=== PATIENT | male | born 1960 | race Caucasian/White ===

== ENCOUNTER 2018-10-07 07:28 | Inpatient (IN) | payer OTHER ==
[2018-10-07 07:58] LABS: INR 0.99 (0.83-1.16); PROTIME(PATIENT) 12.7 SEC (12.0-15.0)
[2018-10-07] MEDS ORDERED: ONDANSETRON 4 MG/2 ML VIAL IVP PRN (08:50)
[2018-10-07] MEDS ORDERED: ONDANSETRON DISINTEGRATING 4 MG TAB PO PRN (08:50)
[2018-10-07] MEDS ORDERED: NS 250 ML IV ONE (08:50)
[2018-10-07] MEDS ORDERED: ACETAMINOPHEN 325 MG TAB PO PRN (08:50)
--- NOTE | 2018-10-07 09:25 | EDPHY ---
ED Progress Note Narrative: Procedure: Laceration repair. I was requested by Dr. Rowan Madera to perform wound closure on the patient's occipital laceration I explained the indications, risks and benefits for both laceration repair and anesthetic administration. Verbal consent was obtained from the patient. The 5 cm laceration on the occiput was anesthetized using 0.5% bupivicaine with epinephrine. After anesthetic administered the patient was observed for a period of time and had no apparent adverse effects. The wound was cleaned, prepped, draped in normal sterile fashion and explored to its base. No foreign body seen, no foreign bodies palpated. There were no deep structures involved. The wound was repaired with 9 salo. The wound repair was complex due to the length of laceration. The procedure was performed by myself. Patient has been informed that scarring will occur, although efforts have been made to minimize this.
[2018-10-07] MEDS ORDERED: D50W 25 GM/50 ML SYR IVP PRN (09:31)
[2018-10-07 10:26] LABS: PLATELET COUNT 252 10^3/uL (150-400)
--- NOTE | 2018-10-07 10:49 | GHP ---
[f rep st] HISTORY AND PHYSICAL DATE OF ADMISSION: 10/07/2018 CHIEF COMPLAINT: Confused. 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 Apparently, he presented to work around 6:00 AM this morning. A co-worker saw him shortly thereafter. About 30 minutes later, the co-worker returned to find him lying on the ground with blood pooling around his head. He was somewhat confused at the time. Mr. Velasco does not remember what happened. He has never had a seizure before. His alcohol intake is slightly unclear. He is telling me he has a few beers a day, however, reportedly, [id number] believes this may be more. He tells me, yesterday, he had a beer and a cocktail. He did not believe that he was dehydrated. He does drink significant amounts of free water, including sugar-free Gatorades. He does not use any other drugs, including cocaine and amphetamines, although he does use some marijuana. There is report of a tongue bite from the ED. He was initially very confused with a "glazed" state. He has slowly improved and is now alert and oriented x3. PAST MEDICAL/SURGICAL HISTORY: 1. Diabetes mellitus, on oral medications. 2. Hypertension. 3. Asthma. 4. Detached retina. 5. A history of cataract surgery. MEDICATIONS: Please see medication reconciliation. ALLERGIES: No known drug allergies. FAMILY HISTORY: Reviewed and noncontributory. SOCIAL HISTORY: Alcohol, as above. He is accompanied by his and brother- in-law, who is a physician. REVIEW OF SYSTEMS: A 10-point review of systems is notable for recent respiratory disorder. Otherwise, negative, except per HPI. PHYSICAL EXAM: GENERAL: Patient appears comfortable. VITAL SIGNS: Have not been entered into [facility] yet. HEENT: He has a laceration on his head with some blood around it. He has a bite on the anterior aspect of his tongue as well as on the right lateral aspect. CARDIOVASCULAR: Exam shows a regular rate and rhythm. No murmurs, rubs or gallops. PULMONARY: Shows lungs clear to auscultation bilaterally. ABDOMEN: Soft, nontender, nondistended. SKIN: Shows no rash. : Shows no Iniguez. He does have some urine around on his underwear. NEUROLOGIC: Shows him to be alert and oriented x3. He is moving all extremities. PSYCHIATRIC: Shows a normal mood and affect. LABS: Sodium is 120, chloride 85, bicarbonate 11, glucose 285. LFTs are normal. Initial CBC was rejected, though, his hemoglobin is 13.3. DATA: 1. Discussed with Dr. Madera. Will admit to the step-down unit. 2. I reviewed his head CT. This shows nothing acute. 3. Initial report from cervical spine CT is negative. 4. ECG shows a prolonged KS interval. IMPRESSION AND PLAN: 1. Seizure, suspected: Consistent with his postictal period. His anion gap, acidosis, tongue laceration, loss of bladder control; I am not clear exactly what the etiology is. This certainly may be alcohol withdrawal. Head CT was negative for anything acute. His corrected sodium comes to 124, thus, I do not think that is really the etiology, though, it may have made him more susceptible to a seizure. I have sent a urine tox screen. I will start him empirically on Keppra for now. Will ask Neurology to see him in consultation. 2. Hyponatremia: When sodium is corrected for his hyperglycemia, it comes to 124. Urine electrolytes are pending. Given his tachycardia, I suspect that he is slightly dry. He is getting a small amount of normal saline, 250 cc, will recheck. My goal for his sodium tomorrow morning would be around 130. 3. Diabetes with hyperglycemia: Will place him on sliding scale insulin. Will hold metformin for now. 4. Anion gap acidosis: Suspect lactate in the setting of seizure. I note that he is on metformin as well. Will recheck soon. 5. Detached retina: I believe this is the finding on his CT head. Does not need any further workup, at this time, as it is chronic. 6. Prolonged P-R interval: I do not believe that he had syncope from this, at this point, although we will continue to monitor him on telemetry. 7. Venous thromboembolism risk is moderate to high. I will place him on Lovenox. /[id number]/MODL MTDD
[2018-10-07] MEDS: levETIRAcetam 750 MG in NS 100 ML IV SCH ×2 (11:00→21:39)
[2018-10-07] MEDS ORDERED: ALBUTEROL 60 PUFFS/8 GM MDI IH PRN (11:31)
[2018-10-07] MEDS: INSULIN LISPRO 100 UNIT/ML SC SCH ×2 (12:36→17:48)
[2018-10-07] MEDS: ENOXAPARIN 40 MG/0.4 ML SYR SC SCH (12:37)
--- NOTE | 2018-10-07 12:45 | GCON ---
[f rep st] CONSULTATION DATE OF CONSULTATION: 10/07/2018 REASON FOR CONSULTATION: Hyponatremia, possible seizure, mental status changes. HISTORY OF PRESENT ILLNESS: This is a 58-year-old male with a past medical history significant for d iabetes, hypertension, and reactive airway disease, who now presents with a possible seizure and a so dium level of 118. History is obtained from the patient. He is alert and oriented, but a fair histo héctor. Additional history is obtained from the medical staff, as well as the [facility] records. The patient was in his baseline state of health when he arrived at work earlier today and felt slight ly dizzy. 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 A co-worker found him lying on the g round with blood pooling around his head. He was arousable and slightly confused. He does not have memory of the events. He did have a head laceration and tongue lacerations. He did not have any his tory of syncope or seizures prior to this time. His admission blood pressure was quite high at 205/9 9. His admission labs were remarkable for an anion gap acidosis, that then corrected. His creatinin e level was normal. His current sodium level is 118, with a glucose level of 295. Presently, the venecia quiñones's mental status appears appropriate. He does appear somewhat anxious. In reviewing the patient's medical records from [facility], he did have laboratory studies performed in [place] 2017, which demonstrated a sodium level of 132. He is on a thiazide diuretic. Additional labor atory studies were ordered from June of this year, but it does not appear they were completed. The patient does admit to drinking large amounts of fluids. He states his eating has been good and w ithout change. He denies recent medication changes. He is unaware of his most recent hemoglobin A1c , and does not believe he has hypoglycemic episodes. He has had recent worsening of reactive airway disease, which he associates with a recent viral respiratory infection. Because of this, he has been using an inhaler. The patient has already had some laboratory studies return from his current evaluation. This include a normal TSH. A cortisol level is 56. His chest x-ray is normal. He has had some hyperglycemia, w ith glucose levels in the upper 200s. As related to the above findings, we were asked by Dr. Burr to assist in the patient's renal diagnosis and management. PAST MEDICAL HISTORY: 1. Diabetes mellitus x10 years. 2. Hypertension. 3. Reactive airway disease. 4. Detached retina. 5. History of cataract surgery. 6. History of foot. 7. Peripheral neuropathy. SURGICAL HISTORY: Cataract surgery. FAMILY HISTORY: Positive for lung cancer. SOCIAL HISTORY: The patient was raised in the [facility]. He is . He has 1 son whom he has no t seen in some time. 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 He does not smoke cigarettes. He drinks 4 alc oholic drinks per day. REVIEW OF SYSTEMS: GENERAL: The patient denies recent weight changes. He does admit to drinking la rge amounts of fluid. He states his appetite has been stable. He is denying a headache. He denies visual disturbances. He has had a runny nose and dry cough. He denies sore throat. LUNGS: He has had some shortness of breath which he associates with reactive airway disease. CHEST: He denies daniela st pain or palpitations. ABDOMEN: He denies abdominal pain, constipation, or diarrhea. GENITOURINA RY: He denies dysuria. He does urinate 3 to 4 times a night. EXTREMITIES: He has lower extremity e janet. He has a history of neuropathy per the chart. SKIN: He denies skin rashes or skin lesions. ENDOCRINE: He has history of diabetes, but not thyroid disease. PHYSICAL EXAMINATION: GENERAL: At time of exam, the patient is appropriate and alert. VITAL SIGNS: Temperature 36.6, pulse 89, blood pressure 162/88. HEENT: Eyes: Sclerae clear. Oropharynx: To ngue laceration noted. NECK: No lymphadenopathy or thyromegaly. LUNGS: Clear auscultation bilater ally. CARDIOVASCULAR: Regular rate and rhythm, without murmurs, gallops, or rubs. ABDOMEN: Soft, nontender. No organomegaly. AND RECTAL: Deferred. EXTREMITIES: No lower extremity edema. GRABIEL RO: I do not see any focal findings at present. INTEGUMENT: Notable for his scalp laceration. LABORATORY STUDIES: Sodium 118, potassium 5.3, bicarb 21, creatinine 0.8. Urine osmolality 512. Wh ite count 6.6, hematocrit 36.2, platelet count 252. IMPRESSION AND PLAN: 1. Hyponatremia. The patient does have significant hyponatremia. His hyponatremia corrects into th e low 120s. The patient is on a thiazide diuretic and drinks large amounts of fluids, per his report . He states his appetite has been stable. The only past sodium level I had was slightly low at 132 in August 2017. His current urine osmolality is high. He appears euvolemic on exam. If the patient indeed had a seizure induced by hyponatremia at these levels, he certainly would have a component of acute hyponatremia. Given his thiazide diuretic and his past sodium level, I believe he does have an element of chronic hyponatremia. His risk for osmotic demyelination would be only based on his poss ible alcohol history, as his potassium level is fine, he is an older male, and his corrected sodium l evel is near 120. I would today plan to correct him into the upper 120s over the next 24-hour period . Given his thiazide diuretic, I suspect he is going to correct relatively slowly. Additional urine electrolytes are pending at the present time. He is not having any mental status changes or other s ymptoms right now. We will repeat a set of urine electrolytes and potentially give a low dose of hyp ertonic. We will follow him closely in a serial fashion. As noted above, his cortisol status, thyro id status, and chest x-ray are okay. His thiazide diuretic will be stopped, and he should not go garry k on this. 2. Hyperkalemia. This is mild and possibly related to his hyperglycemia. I believe it is unlikely he has adrenal insufficiency. 3. Hypertension. This could be from a postictal state. I have not been able to see a recent blood pressure in the [facility] record. We will monitor his blood pressure and treat as needed. I believe hy pertensive emergency is unlikely. 4. Seizures. There are multiple potential reasons for this. His sodium level is not as low as one typically sees, but if is an element of acuity to his drop in sodium, certainly this could be a cause . There is some question of alcohol use and whether this could be a withdrawal seizure. He will nee d to be evaluated for all potential causes of seizures by Neurology. 5. Diabetes. We will check a hemoglobin A1c to ascertain his control. 6. Metabolic acidosis. This is likely related to seizure activity, and appears to be correcting stephanie ropriately. 7. Anemia. The patient appears to have mild anemia. It does not appear through the [facility] system t hat he has had evaluation of anemia. Thank you for allowing us to participate in this gentleman's care. We will continue following closel y with you. /[id number]/MODL
--- NOTE | 2018-10-07 14:52 | CPEKG ---
Test Reason : OPEN Blood Pressure : / mmHG Vent. Rate : 094 BPM Atrial Rate : 094 BPM P-R Int : 256 ms QRS Dur : 092 ms QT Int : 340 ms P-R-T Axes : 066 068 045 degrees QTc Int : 426 ms Sinus rhythm Prolonged [place] interval Confirmed by Rowan Madera ([id number]) on 10/07/2018 2:51:52 PM Referred By: PHYSICIAN ED Confirmed By:Rowan Madera
--- NOTE | 2018-10-07 15:13 | PDGENHP ---
History and Physical - Chief Complaint Fall with head laceration - History of Present Illness This is a trauma evaluation for 58-year-old male who is brought status post likely first-time seizure with head laceration. Briefly, the patient remembers arriving at work this morning, he remembers feeling somewhat lightheaded and sitting down. 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 Currently, the patient is alert oriented protecting his airway with adequate breathing and normal circulation in all major distributions. He has never had any seizure or syncopal events in the past. He currently has some pain in his posterior head where the salo are but other than that he has no current complaints. History Information - Allergies/Home Medication List Allergies/Adverse Reactions: No Known Allergies Allergy (Verified 10/07/18 10:05) Home Medications: Albuterol [Proventil Inhaler HFA (*)] 1 - 2 puffs IH Q4H PRN 10/07/18 [Last Taken Unknown] Aspirin [Aspirin 81mg (*)] 81 mg PO DAILY 10/07/18 [Last Taken 10/06/18] Hydrochlorothiazide [HCTZ (*)] 25 mg PO DAILY 10/07/18 [Last Taken 10/06/18] Lisinopril [Zestril 40 mg (*)] 40 mg PO DAILY 10/07/18 [Last Taken 10/06/18] Metformin HCl [Metformin 1000 mg] 1,000 mg PO BIDMEAL 10/07/18 [Last Taken 10/07] amLODIPine BESYLATE [Norvasc 2.5 mg (*)] 2.5 mg PO DAILY 10/07/18 [Last Taken ] I have personally reviewed and updated: family history, medical history, social history, surgical history Past Medical History: Diabetes, hypertension, asthma, history of detached retina - Surgical History Additional surgical history: Cataract surgery in the past - Family History Additional family history: No seizure history - Social History Smoking Status: Never smoked Alcohol Use: Heavy Drug Use: Cocaine Additional social history: Works 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 [employer] 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 Review of Systems Review of Systems: ROS: 10pt was reviewed & negative except for what was stated in HPI & below Physical Exam Physical Exam: Temp Pulse Resp BP Pulse Ox 36.8 C 88 16 136/72 H 96 10/07/18 12:26 10/07/18 12:26 10/07/18 12:26 10/07/18 12:26 10/07/18 12:26 Constitutional: no apparent distress, appears nourished, not in pain Eyes: PERRL, anicteric sclera, EOMI Ears, Nose, Mouth, Throat: moist mucous membranes, hearing normal, ears appear normal, no oral mucosal ulcers Cardiovascular: regular rate and rhythym, no murmur, rub, or gallop, No edema Respiratory: no respiratory distress, no rales or rhonchi, clear to auscultation Gastrointestinal: normoactive bowel sounds, soft, non-tender abdomen, no palpable masses Genitourinary: no bladder fullness, no bladder tenderness Skin: warm, normal color, no fluctuance, no induration, other (Posterior head laceration with about 6 8 salo in is clean dry and intact and approximated well), No mottled Musculoskeletal: full muscle strength, no muscle tenderness, normal joint ROM, no joint effusions Psychiatric: interacting appropriately, not anxious, not encephalopathic, thought process linear Lymph, Heme, Immunologic: no cervical LAD, no supraclavicular LAD Lab Data & Imaging Review 10/07/18 08:07 10/07/18 13:55 WBC 6.62 10^3/uL (3.80-9.50) 10/07/18 08:07 RBC 4.11 10^6/uL (4.40-6.38) L 10/07/18 08:07 Hgb 13.3 g/dL (13.7-17.5) L 10/07/18 08:07 POC Hgb 13.3 gm/dL (13.7-17.5) L 10/07/18 07:39 Hct 36.2 % (40.0-51.0) L 10/07/18 08:07 POC Hct 39 % (40-51) L 10/07/18 07:39 MCV 88.1 fL (81.5-99.8) 10/07/18 08:07 MCH 32.4 pg (27.9-34.1) 10/07/18 08:07 MCHC 36.7 g/dL (32.4-36.7) 10/07/18 08:07 RDW 12.1 % (11.5-15.2) 10/07/18 08:07 Plt Count 252 10^3/uL (150-400) 10/07/18 08:07 MPV 9.5 fL (8.7-11.7) 10/07/18 08:07 Neut % (Auto) 79.8 % (39.3-74.2) H 10/07/18 08:07 Lymph % (Auto) 9.4 % (15.0-45.0) L 10/07/18 08:07 [place] % (Auto) 9.1 % (4.5-13.0) 10/07/18 08:07 Eos % (Auto) 0.6 % (0.6-7.6) 10/07/18 08:07 Baso % (Auto) 0.5 % (0.3-1.7) 10/07/18 08:07 Nucleat RBC Rel Count 0.0 % (0.0-0.2) 10/07/18 08:07 Absolute Neuts (auto) 5.29 10^3/uL (1.70-6.50) 10/07/18 08:07 Absolute Lymphs (auto) 0.62 10^3/uL (1.00-3.00) L 10/07/18 08:07 Absolute Monos (auto) 0.60 10^3/uL (0.30-0.80) 10/07/18 08:07 Absolute Eos (auto) 0.04 10^3/uL (0.03-0.40) 10/07/18 08:07 Absolute Basos (auto) 0.03 10^3/uL (0.02-0.10) 10/07/18 08:07 Absolute Nucleated RBC 0.00 10^3/uL (0-0.01) 10/07/18 08:07 Immature Gran % 0.6 % (0.0-1.1) 10/07/18 08:07 Immature Gran # 0.04 10^3/uL (0.00-0.10) 10/07/18 08:07 PT 12.7 SEC (12.0-15.0) 10/07/18 07:25 INR 0.99 (0.83-1.16) 10/07/18 07:25 POC Sodium 118 mEq/L (135-145) L* 10/07/18 07:39 Sodium 121 mEq/L (135-145) L 10/07/18 13:55 POC Potassium 4.7 mEq/L (3.3-5.0) 10/07/18 07:39 Potassium 4.6 mEq/L (3.5-5.2) 10/07/18 13:55 POC Chloride 86 mEq/L (97-110) L 10/07/18 07:39 Chloride 86 mEq/L (97-110) L 10/07/18 13:55 Carbon Dioxide 24 mEq/l (22-31) 10/07/18 13:55 POC Total CO2 17 mEq/L (22-31) L 10/07/18 07:39 Anion Gap 11 mEq/L (6-14) 10/07/18 13:55 POC BUN 5 mg/dL (7-23) L 10/07/18 07:39 BUN 7 mg/dL (7-23) 10/07/18 13:55 Creatinine 0.6 mg/dL (0.7-1.3) L 10/07/18 13:55 POC Creatinine 0.8 mg/dL (0.7-1.3) 10/07/18 07:39 Estimated GFR > 60 10/07/18 13:55 Glucose 184 mg/dL (70-100) H 10/07/18 13:55 POC Glucose 256 mg/dL (70-100) H 10/07/18 12:12 Serum Osmolality 267 mosmo/kg (280-297) L 10/07/18 07:25 Calcium 9.2 mg/dL (8.5-10.4) 10/07/18 13:55 Total Bilirubin 0.9 mg/dL (0.1-1.4) 10/07/18 07:25 Conjugated Bilirubin 0.1 mg/dL (0.0-0.5) 10/07/18 07:25 Unconjugated Bilirubin 0.8 mg/dL (0.0-1.1) 10/07/18 07:25 AST 41 IU/L (17-59) 10/07/18 07:25 ALT 39 IU/L (21-72) 10/07/18 07:25 Alkaline Phosphatase 86 IU/L (38-126) 10/07/18 07:25 POC Troponin I 0.01 ng/mL (0.00-0.08) 10/07/18 07:38 Total Protein 7.3 g/dL (6.3-8.2) 10/07/18 07:25 Albumin 4.9 g/dL (3.5-5.0) 10/07/18 07:25 TSH 1.290 uIU/mL (0.465-4.680) 10/07/18 09:30 Cortisol AM Sample 56.3 ug/dL (4.5-22.7) H 10/07/18 09:30 Urine Color YELLOW 10/07/18 10:24 Urine Appearance CLEAR 10/07/18 10:24 Urine pH 6.0 (5.0-7.5) 10/07/18 10:24 Ur Specific [place] 1.018 (1.002-1.030) 10/07/18 10:24 Urine Protein NEGATIVE (NEGATIVE) 10/07/18 10:24 Urine Ketones 1+ (NEGATIVE) H 10/07/18 10:24 Urine Blood NEGATIVE (NEGATIVE) 10/07/18 10:24 Urine Nitrate NEGATIVE (NEGATIVE) 10/07/18 10:24 Urine Bilirubin NEGATIVE (NEGATIVE) 10/07/18 10:24 Urine Urobilinogen NEGATIVE EU (0.2-1.0) 10/07/18 10:24 Ur Leukocyte Esterase NEGATIVE (NEGATIVE) 10/07/18 10:24 Urine RBC NONE SEEN /hpf (0-3) 10/07/18 10:24 Urine WBC 1-3 /hpf (0-3) 10/07/18 10:24 Ur Epithelial Cells NONE SEEN /lpf (NONE-1+) 10/07/18 10:24 Hyaline Casts 1-5 /lpf (0-1) 10/07/18 10:24 Urine Mucus TRACE /lpf (NONE-1+) 10/07/18 10:24 Urine Osmolality 512 mosmo/kg (300-900) 10/07/18 10:24 Ur Random Creatinine 59.2 mg/dL 10/07/18 10:24 Ur Random Sodium 44 mEq/L (30-90) 10/07/18 10:24 Urine Glucose 3+ (NEGATIVE) H 10/07/18 10:24 Urine Opiates Screen NEGATIVE ng/mL (NEGATIVE) 10/07/18 10:24 Urine Barbiturates NEGATIVE ng/mL (NEGATIVE) 10/07/18 10:24 Ur Phencyclidine Scrn NEGATIVE ng/mL (NEGATIVE) 10/07/18 10:24 Ur Amphetamines Screen NEGATIVE ng/mL (NEGATIVE) 10/07/18 10:24 U Benzodiazepines Scrn NEGATIVE ng/mL (NEGATIVE) 10/07/18 10:24 Urine Cocaine Screen > 45728 ng/mL (NEGATIVE) 10/07/18 10:24 U Marijuana (THC) Screen NEGATIVE ng/mL (NEGATIVE) 10/07/18 10:24 Ethyl Alcohol < 10 mg/dL (0-10) 10/07/18 09:30 Visualized and Interpreted imaging results: Yes Interpretation: CT head: No acute traumatic findings. CT C-spine: No acute traumatic findings. Chest x-ray: Normal Assessment & Plan Assessment: 4-year-old male status post likely seizure event with subsequent head laceration Plan: After a thorough trauma assessment I see no other acute findings with the patient. His head laceration was repaired in the emergency department and skin appears well approximated. I do not see any additional injuries in feel as though his medical workup and treatment for possible seizure and electrolyte abnormalities is appropriate. Will sign off from a trauma standpoint. Please call if there are any changes in his status or any other injuries are identified during his hospital stay. I did tell the patient that he is welcome to the the follow-up in the emergency department or in the surgery office for staple removal which should happen in 7-10 days.
--- NOTE | 2018-10-07 15:28 | PDMN ---
Medical Necessity Medical necessity: MCG: GRG systemic condition: 2 days: Hyponatremia with SZ. 58yo M found down, suspect SZ unwitnessed but pt with head lac. req salo, hyponatremia ( 118) , pt also with PMHx: DM X 10yrs., HTN, RAD, detached retina, Hx cataracts, Peripheral neuropathy, anticipate > 2 MN ongoing med nec care- further monitoring, eval and tx. of above
--- NOTE | 2018-10-07 15:38 | ASMTCMCOM ---
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 Pt has hx or diabetes, hypertension, asthma, and detached retina. Pt has hx etoh and marijuana use. CRM COORDINATOR ordered, eval pending. CM to follow. Plan: TBD Date Signed: 10/07/2018 03:37 PM Electronically Signed By:EVER Lewis
--- NOTE | 2018-10-07 17:07 | EDPHY ---
H & P Stated Complaint: Unwitnessed seizure , fall on concrete floor. Scalp lac Time Seen by Provider: 10/07/18 07:35 HPI/ROS: CHIEF COMPLAINT: Limited trauma activation, head lac, altered mental status, found down HISTORY OF PRESENT ILLNESS: 58-year-old male with history of hypertension and diabetes who presents to the emergency department via EMS. 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 This morning by his coworkers. They noted a laceration to the back of the head and the patient was confused. Patient himself can give little other information. He seemed to clear slightly during EMS transport and is oriented to person and place only. Patient's family members report he has a history of hypertension as well as diabetes. As best as they know the patient was feeling well yesterday and was fine when he went to work this morning. Diabetes is controlled with metformin. Patient does drink alcohol, and had alcohol last night, family denies any history of alcohol related complications. No history of fevers from the family, no history of vomiting, diarrhea, or complaints of headache or urinary complaints. REVIEW OF SYSTEMS: Review of systems is unobtainable from this patient because of altered mentation. PAST MEDICAL HISTORY: Diabetes, hypertension SOCIAL HISTORY: Positive alcohol use. VITAL SIGNS Reviewed by me. GENERAL: Well-developed, well-nourished, complaining of pain in his neck where cervical collar is placed. HEENT: 3 cm laceration over the right occiput with surrounding hematoma. Eyes : No icterus, no injection. No nystagmus. Mouth: Bite ferrer on the side of the tongue. No erythema or lesions. Neck: In a cervical collar. No midline tenderness on examination. LUNGS: Clear to auscultation bilaterally, no wheezes, rhonchi or rales. CARDIAC: Regular rate and rhythm, no rubs, murmurs or gallops. ABDOMEN: Soft, nontender, nondistended, bowel sounds normal. BACK: No CVA tenderness. EXTREMITIES: No trauma. No edema. Range of motion is normal throughout. NEURO: Alert, oriented to person and place. Does not know the date. Able to give a limited history regarding his past medical history or his review of systems. Moving all extremities x4. Denies numbness or tingling. Cranial nerves 2-12 are intact. SKIN: Warm and dry, no rash. PSYCHIATRIC: Normal mentation, no agitation. - Personal History Current Tetanus/Diphtheria Vaccine: Yes Current Tetanus Diphtheria and Acellular Pertussis (TDAP): Yes - Medical/Surgical History Hx Asthma: Yes Hx Chronic Respiratory Disease: No Hx Diabetes: Yes Hx Cardiac Disease: Yes Hx Renal Disease: No Hx Cirrhosis: No Hx Alcoholism: No Hx HIV/AIDS: No Hx Splenectomy or Spleen Trauma: No Other PMH: HTN, Asthma , NIDDM - Social History Smoking Status: Never smoked Constitutional: Initial Vital Signs Temperature (C) 36.5 C 10/07/18 10:34 Heart Rate 90 10/07/18 10:34 Respiratory Rate 16 10/07/18 10:34 Blood Pressure 205/99 H 10/07/18 10:34 O2 Sat (%) 94 10/07/18 10:34 Allergies/Adverse Reactions: No Known Allergies Allergy (Verified 10/07/18 10:05) Home Medications: Medication Instructions Recorded Albuterol [Proventil Inhaler HFA 1 - 2 puffs IH Q4H PRN 10/07/18 (*)] Aspirin [Aspirin 81mg (*)] 81 mg PO DAILY 10/07/18 Hydrochlorothiazide [HCTZ (*)] 25 mg PO DAILY 10/07/18 Lisinopril [Zestril 40 mg (*)] 40 mg PO DAILY 10/07/18 Metformin HCl [Metformin 1000 mg] 1,000 mg PO BIDMEAL 10/07/18 amLODIPine BESYLATE [Norvasc 2.5 2.5 mg PO DAILY 10/07/18 mg (*)] Medical Decision Making - Diagnostics EKG Interpretation: 12-LEAD EKG: Please see the full report in [facility]. My interpretation: Sinus rhythm, prolonged WA Imaging Results: Imaging Impressions Head CT 10/07/18 07:36 Impression: 1. Nothing acute intracranially. Mild atrophy and microvascular ischemic disease. 2. Posterior right occipital/parietal scalp hematoma without underlying fracture or bleed. 3. Bony well-corticated fragment versus implant at the subcutaneous tissue at the right superior orbit of indeterminate significance. Findings and recommendations discussed with Rowan Madera MD at 8:17 a.m. on . Final report concurs with initial preliminary interpretation. e:sfg Cervical Spine CT 10/07/18 07:49 Impression: No acute fracture. Findings and recommendations discussed with Rowan Madera MD at 8:16 a.m. on 10/07/2018. Final report concurs with initial preliminary interpretation. ED Course/Re-evaluation: 58-year-old male presenting as a limited trauma activation secondary to head trauma of unknown etiology and altered mental status. Patient appears to be postictal and has evidence of trauma to his tongue. Head CT and cervical spine CT were negative for any acute traumatic findings. Bedside I-STAT was remarkable for a sodium of 118 and elevated glucose. Troponin was normal. Patient received 250 cc of normal saline. Laceration was repaired by LEENA Wu. Patient's course was discussed with the hospitalist service. Patient was admitted to step-down for treatment is hyponatremia, and presume seizure. I did discuss this course with the Emergency Case Management physician at [facility] today as the patient does have [employer] insurance. They agree that the patient should stay at [facility] for admission until he is more stable. Patient was also evaluated in the emergency department for an by Nephrology given his hyponatremia of unknown etiology. Differential Diagnosis: Differential diagnoses for the patient's symptom complex was considered including but not limited to seizure versus syncope versus mechanical fall, contusion, electrolyte abnormalities, intracranial hemorrhage, drug or alcohol abuse, drug or alcohol withdrawal. Consult/Admit Bed Type: Tierney Rubi - Data Points Laboratory Results: Laboratory Results 10/07/18 08:07 10/07/18 07:25 10/07/18 10/07/18 10/07/18 08:07 07:39 07:38 WBC 6.62 10^3/uL 10^3/uL (3.80-9.50) RBC 4.11 10^6/uL L 10^6/uL (4.40-6.38) Hgb 13.3 g/dL L g/dL (13.7-17.5) POC Hgb 13.3 gm/dL L gm/dL (13.7-17.5) Hct 36.2 % L % (40.0-51.0) POC Hct 39 % L % (40-51) MCV 88.1 fL fL (81.5-99.8) MCH 32.4 pg pg (27.9-34.1) MCHC 36.7 g/dL g/dL (32.4-36.7) RDW 12.1 % % (11.5-15.2) Plt Count 252 10^3/uL 10^3/uL (150-400) MPV 9.5 fL fL (8.7-11.7) Neut % (Auto) 79.8 % H % (39.3-74.2) Lymph % (Auto) 9.4 % L % (15.0-45.0) Blaine % (Auto) 9.1 % % (4.5-13.0) Eos % (Auto) 0.6 % % (0.6-7.6) Baso % (Auto) 0.5 % % (0.3-1.7) Nucleat RBC Rel Count 0.0 % % (0.0-0.2) Absolute Neuts (auto) 5.29 10^3/uL 10^3/uL (1.70-6.50) Absolute Lymphs (auto) 0.62 10^3/uL L 10^3/uL (1.00-3.00) Absolute Monos (auto) 0.60 10^3/uL 10^3/uL (0.30-0.80) Absolute Eos (auto) 0.04 10^3/uL 10^3/uL (0.03-0.40) Absolute Basos (auto) 0.03 10^3/uL 10^3/uL (0.02-0.10) Absolute Nucleated RBC 0.00 10^3/uL 10^3/uL (0-0.01) Immature Gran % 0.6 % % (0.0-1.1) Immature Gran # 0.04 10^3/uL 10^3/uL (0.00-0.10) PT INR POC Sodium 118 mEq/L L* mEq/L (135-145) Sodium POC Potassium 4.7 mEq/L mEq/L (3.3-5.0) Potassium POC Chloride 86 mEq/L L mEq/L (97-110) Chloride Carbon Dioxide POC Total CO2 17 mEq/L L mEq/L (22-31) Anion Gap POC BUN 5 mg/dL L mg/dL (7-23) BUN Creatinine POC Creatinine 0.8 mg/dL mg/dL (0.7-1.3) Estimated GFR Glucose POC Glucose 295 mg/dL H mg/dL (70-100) Serum Osmolality Calcium Total Bilirubin Conjugated Bilirubin Unconjugated Bilirubin AST ALT Alkaline Phosphatase POC Troponin I 0.01 ng/mL ng/mL (0.00-0.08) Total Protein Albumin 10/07/18 10/07/18 10/07/18 07:25 07:25 07:25 WBC RBC Hgb POC Hgb Hct POC Hct MCV MCH MCHC RDW Plt Count MPV Neut % (Auto) Lymph % (Auto) Blaine % (Auto) Eos % (Auto) Baso % (Auto) Nucleat RBC Rel Count Absolute Neuts (auto) Absolute Lymphs (auto) Absolute Monos (auto) Absolute Eos (auto) Absolute Basos (auto) Absolute Nucleated RBC Immature Gran % Immature Gran # PT INR POC Sodium Sodium 120 mEq/L L mEq/L (135-145) POC Potassium Potassium 5.2 mEq/L mEq/L (3.5-5.2) POC Chloride Chloride 85 mEq/L L mEq/L (97-110) Carbon Dioxide 11 mEq/l L mEq/l (22-31) POC Total CO2 Anion Gap 23 mEq/L H mEq/L (6-14) POC BUN BUN 7 mg/dL mg/dL (7-23) Creatinine 0.7 mg/dL mg/dL (0.7-1.3) POC Creatinine Estimated GFR > 60 Glucose 285 mg/dL H mg/dL (70-100) POC Glucose Serum Osmolality 267 mosmo/kg L mosmo/kg (280-297) Calcium 9.6 mg/dL mg/dL (8.5-10.4) Total Bilirubin 0.9 mg/dL mg/dL (0.1-1.4) Conjugated Bilirubin 0.1 mg/dL mg/dL (0.0-0.5) Unconjugated Bilirubin 0.8 mg/dL mg/dL (0.0-1.1) AST 41 IU/L IU/L (17-59) ALT 39 IU/L IU/L (21-72) Alkaline Phosphatase 86 IU/L IU/L (38-126) POC Troponin I Total Protein 7.3 g/dL g/dL (6.3-8.2) Albumin 4.9 g/dL g/dL (3.5-5.0) 10/07/18 10/07/18 07:25 07:25 WBC REJ RBC REJ Hgb REJ POC Hgb Hct REJ POC Hct MCV REJ MCH REJ MCHC REJ RDW REJ Plt Count REJ MPV REJ Neut % (Auto) REJ Lymph % (Auto) REJ Blaine % (Auto) REJ Eos % (Auto) REJ Baso % (Auto) REJ Nucleat RBC Rel Count REJ Absolute Neuts (auto) REJ Absolute Lymphs (auto) REJ Absolute Monos (auto) REJ Absolute Eos (auto) REJ Absolute Basos (auto) REJ Absolute Nucleated RBC REJ Immature Gran % REJ Immature Gran # REJ PT 12.7 SEC SEC (12.0-15.0) INR 0.99 (0.83-1.16) POC Sodium Sodium POC Potassium Potassium POC Chloride Chloride Carbon Dioxide POC Total CO2 Anion Gap POC BUN BUN Creatinine POC Creatinine Estimated GFR Glucose POC Glucose Serum Osmolality Calcium Total Bilirubin Conjugated Bilirubin Unconjugated Bilirubin AST ALT Alkaline Phosphatase POC Troponin I Total Protein Albumin Medications Given: Amlodipine Besylate (Norvasc) 2.5 mg PO DAILY [facility] Stop: 04/05/19 11:44 Last Admin: 10/07/18 12:36 Dose: 2.5 mg Enoxaparin Sodium (Lovenox) 40 mg SC DAILY [facility] Stop: 04/05/19 08:59 Last Admin: 10/07/18 12:37 Dose: 40 mg Levetiracetam 750 mg/ Sodium (Chloride) 107.5 mls @ 430 mls/hr IV BID [facility] Stop: 04/05/19 09:29 Last Admin: 10/07/18 11:00 Dose: 107.5 mls Insulin Human Lispro (Humalog Lispro) 0 unit SC TIDMEAL [facility] PRN Reason: Protocol Stop: 04/05/19 11:59 Last Admin: 10/07/18 12:36 Dose: 6 units Discontinued Medications Sodium Chloride (Ns) 250 mls @ 1,500 mls/hr IV ONCE ONE Stop: 10/07/18 08:59 Last Admin: 10/07/18 10:39 Dose: 250 mls Point of Care Test Results: Chemistry 10/07/18 10/07/18 07:39 07:38 POC Sodium 118 mEq/L L* mEq/L (135-145) POC Potassium 4.7 mEq/L mEq/L (3.3-5.0) POC Chloride 86 mEq/L L mEq/L (97-110) POC Total CO2 17 mEq/L L mEq/L (22-31) POC BUN 5 mg/dL L mg/dL (7-23) POC Creatinine 0.8 mg/dL mg/dL (0.7-1.3) POC Glucose 295 mg/dL H mg/dL (70-100) POC Troponin I 0.01 ng/mL ng/mL (0.00-0.08) ISTAT H&H 10/07/18 07:39 POC Hgb 13.3 gm/dL L gm/dL (13.7-17.5) POC Hct 39 % L % (40-51) Departure - Departure Disposition: [facility] Inpatient Acute Clinical Impression: Seizure disorder, Hyponatremia Altered mental status Qualifiers: Altered mental status type: disorientation Qualified Code(s): R41.0 - Disorientation, unspecified Scalp laceration Qualifiers: Encounter type: initial encounter Qualified Code(s): S01.01XA - Laceration without foreign body of scalp, initial encounter Condition: Fair
--- NOTE | 2018-10-07 18:40 | PDCONSULT ---
Family Lawyer Note: ASSESSMENT 58 year-old male with new onset seizure, hyponatremia and hyperglycemia in the setting of outpatient thiazide diuretic use, acute cocaine intoxication and hyperglycemia # Hyponatremia. Multifactorial. Thiazide diuretic use, excessive free water intake, acute cocaine intoxication. # acute cocaine intoxication. 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 He asked that we do not tell his # seizure. New onset. Suspect due to cocaine and hyponatremia. ETOH withdrawal possible but no prior history of this CT head without obvious pathology # alcohol abuse. No history of withdrawal or withdrawal seizure. Approximately 4-5 drinks per day. Last drink greater than 24 hr # hypertension. On hydrochlorothiazide as outpatient # diabetes and hyperglycemia. # mild intermittent asthma. Does not regularly use inhalers PLAN # trend serum sodiums # regular diet, free water restriction. # holding antihypertensives, thiazide to be discontinued on discharge # follow-up supplemental studies # insulin basal +bolus # as needed albuterol inhaler # counseled on alcohol and cocaine avoidance I was asked by Dr. Burr of [facility] to evaluate this patient for ICU care in the setting of seizure, severe hyponatremia cc seizure HPI Nicolas is a very pleasant 4-year-old male who is brought in by ambulance after a co-worker found him down with a pool of blood around his head. Upon emergency department he underwent emergent valuation which was negative for pneumonia or intracranial pathology. His blood pressure was noted at to 0 5/ 99. Although he initially denied cocaine uses You tox was positive for cocaine. 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 Also drinks alcohol daily but has no history of withdrawals withdrawal seizures. He states compliance with his medications which include a thiazide diuretic. He states his diabetes under less controlled and it should be. He denies new fevers, nausea, vomiting, diarrhea, constipation, cough, hemoptysis. Allergies No known drug allergies Medication A medication reconciliation was performed. 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 Trachea midline no thyromegaly NECK: supple, trachea midline CHEST normal shape, no pes excavatum CVS: rrr no m/r/g, no JVD appreciated PULM: CTAB, no wheezes/rales/rhonchi ABD: soft, NT, ND, NABS EXT: no swelling, no cyanosis, full ROM SKIN: warm, dry, intact, no rash PSYCH CAM negative, appropriate affect Labs Reviewed Imaging I personally reviewed interpreted patient's relevant thoracic imaging as well as formal radiology reads 09/29/2018 CXR clear lung rainey, no osseous abnormality
--- NOTE | 2018-10-07 20:36 | NEUROPROG ---
Assessment: [id number] - Neurology Consult: - CC: Dr. Michael Burr consulted neurology for seizure. Results placed in EMR for his review. - HPI: 10/07/18: Pt found on floor confused on 10/07/18 with signs that he may have bitten his tongue. Pt cannot recall what happened. He denied prior seizures. It was reported by his [id number] he may be using excess alcohol. His urine drug screen was positive for cocaine. Head CT showed no acute intracranial injury. His sodium was low at 118. His neurologic exam on was normal. I felt he likely had a generalized seizure likely from either alcohol use, cocaine use, elevated blood sugar from diabetes, or hyponatremia. I counseled him to taper off alcohol, avoid cocaine, and recommend hospitalist address hyponatremia and high glucose. EEG performed and unremarkable so pt will not require any additional seizure meds or seizure w/u unless he has further seizures. Pt counseled on seizure precautions and driving restrictions until seizure free for 90 days. - PMHx: DM, HTN, asthma, detached retina, cataract surgery - SHx: alcohol use FHx: no seizures - ROS: Pt denied acute fever, total vision loss, active severe chest pain, respiratory failure, total body severe rash, total bowel/bladder incontinence, psychosis, active seizures, or active bleeding - O: VS reviewed General: Alert Eyes: Fundoscopic exam not able to visualize optic disks CV: Heart RRR, no murmur, no carotid bruit Lungs: Clear to auscultation bilaterally, no rhonchi or rales Neuro: - Mental: . Oriented x person/place/date . concentration appears normal . speech fluency/comprehension normal . memory appears normal . fund of knowledge appear intact - Cranial Nerves: . II: PERRL, VFFTC . III/IV/: EOMI, no nystagmus, normal smooth pursuits, no Ptosis . V: facial sensation intact to LT . VII: face symmetric to eye closure and smile . VIII: hearing intact to conversation . IX/X: uvula raises symmetrically . XI: SCM 5/5 B/L strength . XII: tongue protrudes midline w/nl strength - Motor: . Tone: normal tone in all 4 extremity . 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 Probable provoked Seizure: Causes may be idiopathic for seizure but are likely related to alcohol or cocaine use, high sugar, or low sodium. EEG and head CT both unremarkable. - 2. Hyponatremia: defer management to hospitalist and nephrology - 3. High glucose: defer management to hospitalist - 4. Alcohol/Cocaine Use: I recommended pt taper off both drugs and then avoid them as they can cause seizures - Plan: - Taper off alcohol and stop cocaine use - Seizure precautions and driving restrictions until event free for 90 days - No further neurologic w/u needed unless pt has further seizures or additional neurologic issues, neurology will sign off Objective: Vital Signs Temp Pulse Resp BP Pulse Ox 36.8 C 76 23 H 140/79 H 98 10/07/18 19:41 10/07/18 19:41 10/07/18 19:41 10/07/18 19:41 10/07/18 19:41 PT 12.7 SEC (12.0-15.0) 10/07/18 07:25 INR 0.99 (0.83-1.16) 10/07/18 07:25 Allergies/Adverse Reactions: No Known Allergies Allergy (Verified 10/07/18 10:05)
[2018-10-07] MEDS ORDERED: SODIUM CHLORIDE 1,000 MG TAB PO ONE (21:30)
[2018-10-08 06:01] LABS: PLATELET COUNT 198 10^3/uL (150-400)
[2018-10-08] MEDS: ENOXAPARIN 40 MG/0.4 ML SYR SC SCH (08:11)
[2018-10-08] MEDS: INSULIN LISPRO 100 UNIT/ML SC SCH ×2 (08:12→13:33)
[2018-10-08] MEDS ORDERED: PNEUMOCOCCAL 0.5ML VACCINE VIAL (PNEUMOVAX 23) IM ONE (08:51)
[2018-10-08] MEDS ORDERED: levETIRAcetam 500 MG TAB PO SCH (09:00)
[2018-10-08] MEDS ORDERED: ASPIRIN 81 MG CHEWABLE TAB PO SCH (09:00)
--- NOTE | 2018-10-08 09:16 | ASDISCHSUM ---
Discharge Information Plan Status:Home with No Needs Medically Cleared to Leave: Discharge Date: CM D/C Disposition:Home, Routine, Self-Care ADT D/C Disposition:Home, Routine, Self-Care Projected Discharge Date: Transportation at D/C:Family Discharge Delay Reason: Follow-Up Date: Discharge Slot: Final Diagnosis: Placement Information Patient Contact Information Contact Name:RANDELL Relationship:Life Partner Address:[address] [facility] Work Phone: City:[place] Alternate Phone: State/Zip Code:[place] [address] Email: Financial Information Financial Class:HMO and PPO Plans Primary Plan Desc:[facility] Primary Plan Number:[id number] Secondary Plan Desc: Secondary Plan Number: Assessment Information [facility] CM Progress Note CM Note CM Note Notes: Pt is a 58 yo M found down with head laceration in the kitchen of his [employer] company. Pt has hx or diabetes, hypertension, asthma, and detached retina. Pt has hx etoh and marijuana use. PLASTIC FIXTURE BUILDER ordered, eval pending. CM to follow. Plan: TBD Date Signed: 10/07/2018 03:37 PM Electronically Signed By:EVER Lewis [facility] CM Progress Note CM Note CM Note Notes: CM met with pt. Completed CAGE. Provided list of [place] substance abuse resources. Pt goes to [facility] and said that he will establish a new PCP there because his old one left. He has been at that facility before. He said he does not need assistance making appts. No other CM needs identified at this time. is available to help pt with needs after dc and to get to appts. PLASTIC FIXTURE BUILDER is going to see pt for concussion education today. Likely to discharge independently. CM available if needs arise. Plan: Independent Date Signed: 10/08/2018 09:14 AM Electronically Signed By:EVER Lewis Intervention Information
[2018-10-08] MEDS ORDERED: SODIUM CHLORIDE 1,000 MG TAB PO SCH (09:30)
--- NOTE | 2018-10-08 09:32 | PDINTPN ---
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 Multifactorial. Thiazide diuretic use, excessive free water intake, acute cocaine intoxication. # acute cocaine intoxication. 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 He asked that we do not tell his # seizure. New onset. no recurrence. Suspect due to cocaine and hyponatremia. ETOH withdrawal possible but no prior history of this CT head without obvious pathology # alcohol abuse. No history of withdrawal or withdrawal seizure. Approximately 4-5 drinks per day. Last drink greater than 24 hr prior to admission # hypertension. On hydrochlorothiazide as outpatient # diabetes and hyperglycemia. # mild intermittent asthma. Does not regularly use inhalers PLAN # trend serum sodiums, can decrease frequency given stability # carb controlled diet, free water restriction. # holding antihypertensives, thiazide to be discontinued on discharge # follow-up supplemental studies # insulin basal +bolus # as needed albuterol inhaler # counseled on alcohol and cocaine avoidance # downgrade to med surg with tele IMAGING 10/07/18 CXR clear chest 10/07/18 CTH no acute process, no mass, no blood Subjective: Sodium trended down yesterday evening to 122, 1L NS and salt tabs given. Improved and stable overnight and today at 126. Patient ambulating, mildly unsteady gate but improved from yesterday. No new fevers, chills, nausea, vomiting, rash, cough, or chest pain Objective: Vital Signs Temp Pulse Resp BP Pulse Ox 36.7 C 71 18 137/74 H 97 10/08/18 07:33 10/08/18 07:33 10/08/18 07:33 10/08/18 08:11 10/08/18 07:33 Laboratory Results 10/08/18 05:22 10/08/18 08:15 10/07/18 10/08/18 10/09/18 05:59 05:59 05:59 Intake Total 300 Output Total 600 500 Balance -300 -500 PT 12.7 SEC (12.0-15.0) 10/07/18 07:25 INR 0.99 (0.83-1.16) 10/07/18 07:25 Physical Exam - Physical Exam General Appearance: alert, no apparent distress EENT: PERRL/EOMI, pharynx normal, other (Scalp lac sutured) Neck: supple, normal inspection, No thyromegaly Respiratory: chest non-tender, lungs clear, normal breath sounds, No respiratory distress Cardiac/Chest: normal peripheral pulses, regular rate, rhythm, No edema Skin: normal color, warm/dry, No cyanosis Extremities: normal inspection, No pedal edema, No swelling Neuro/Psych: no motor/sensory deficits, alert, normal mood/affect, oriented x 3 ICD10 Worksheet Patient Problems: Problems Problem Status Onset Altered mental status Acute Hyponatremia Acute Scalp laceration Acute Seizure disorder Acute
--- NOTE | 2018-10-08 10:13 | CPEEG ---
[f rep st] ELECTROENCEPHALOGRAM INPATIENT EEG DATE OF STUDY: 10/07/2018 This is an EEG with a posterior dominant rhythm noted to be 10 Hz. No epileptiform discharges or sei zure activity were noted. IMPRESSION: Overall normal EEG with no evidence of seizures or epileptic discharges. /[id number]/MODL
[2018-10-08 12:06] VITALS: BP 163/78
--- NOTE | 2018-10-08 12:49 | SOAPPROG ---
SOAP Progress Note Assessment/Plan: Assessment: #hyponatremia -multifactorial in setting of thiazide diuretic, excessive free water intake with high glucose/Etoh intake -tsh ok, cortisol high -Na 118 initially was when glucose was 295, thus corrects to about 120 initial lab -Na improving correctly at 126 currently- goal Na by am labs no more than about 132 -continue 1.2L fluid restriction, encourage solute intake. We gave salt tab overnight and again this am-- ok to hold if eating ok and monitor lab trend #seizure -suspect cocaine related, less likely hyponatremia but certainly could contribute #polysubstance abuse- Utox positive cocaine, also etoh abuse-- not able to discuss with pt as and sister present and has asked we not discuss in front of them #HTN -avoid thiazides in future -shelby inhib or amlodipine ok options -would not use unopposed bblocker given cocaine use #Dm2 -awaiting A1C results as anticipate needs further meds to help as notes polyuria prior to admit I discussed with hospitalist and RN, family We will follow him at [facility]- I have discussed with my partner there who is covering [facility] [phone] Subjective: Wants to go home, feeling better. and sister at bedside with many questions. No further seizure activity. Eating well, no n/v, diarrhea. notes was urinating a lot ("pissing like a race horse for months.") Objective: Vital Signs Temp Pulse Resp BP Pulse Ox 35.9 C L 77 18 163/78 H 99 10/08/18 12:00 10/08/18 12:00 10/08/18 12:00 10/08/18 12:00 10/08/18 12:00 Laboratory Results 10/08/18 05:22 10/08/18 08:15 10/07/18 10/08/18 10/09/18 05:59 05:59 05:59 Intake Total 300 Output Total 600 500 Balance -300 -500 PT 12.7 SEC (12.0-15.0) 10/07/18 07:25 INR 0.99 (0.83-1.16) 10/07/18 07:25 Physical Exam - Physical Exam General Appearance: alert, no apparent distress EENT: other (mmm) Respiratory: other (non labored) Cardiac/Chest: regular rate, rhythm Skin: warm/dry Extremities: other (no edema) Neuro/Psych: alert, oriented x 3 ICD10 Worksheet Patient Problems: Problems Problem Status Onset Altered mental status Acute Hyponatremia Acute Scalp laceration Acute Seizure disorder Acute
--- NOTE | 2018-10-08 13:46 | PDDCSUM ---
Discharge Summary Discharge Summary: Discharge Diagnosis Found down Hyponatremia Seizure NIDDM HTN Acidosis The patient was found down at his place of employment and EMS was called. No seizure activity was noted but there was concern for tongue biting and a " glazed state" after arrival which could have represented post ictal state. He was started on keppra, and CTH was obtained. CT showed no acute infarct, but a detached retina. Neurology was consulted. [facility] that seizure activity was provoked in the setting of cocaine use, alcohol use and hyponatremia and recommended no driving for 90 days and follow up with them in 1-6 weeks. Neurology made no specific recommendations regarding continuing the keppra which had been started on admission. Patient had severe hyponatremia with a sodium of 118, which corrected to just over 120 when adjusted for glucose. He was given a small bolus of normal saline and nephrology was consulted. Nephrology thought his hyponatremia was secondary to free water intake in setting of thiazide diuretic use. He was placed on a fluid restriction and his sodium corrected to 126 on the day of discharge. They recommended stopping thiazide and continuing fluid restriction with monitoring sodium BID for now. The patient had [place] insurance and so it was requested that he be transferred to a [place] facility for further management. His case was discussed with the [place] physician and he was transferred to [facility] in good condition. Disposition- transferred to [facility] New Medications- Keppra 500 BID thiazide stopped. I spent over 30 minutes on the discharge of this patient.
--- NOTE | 2018-10-08 14:46 | ASMTLACE ---
LACE Length of stay for Answers: 1 day current admission Acuity / Level of Answers: Yes Care: Did the patient have an inpatient admission? Comorbidities - select Answers: Diabetes (uncontrolled or all that apply controlled) Other Notes: HTN # of Emergency department Answers: 1-2 visits in the last 6 months Social determinants Answers: History of substance abuse (ETOH, street drugs, prescription drugs, etc.) Score: 10 Date Signed: 10/08/2018 02:45 PM Electronically Signed By:EVER Lewis
== END 2018-10-08 14:07 | disposition short-term general hospital (02) | DRG 641 ==
LOC: EDUNIT# → F2N 11:10
PROVIDERS: ADMIT Student in an Organized Health Care Education/Training Program; ATTEND Student in an Organized Health Care Education/Training Program
PROC: 0HQ0XZZ Repair Scalp Skin, External Approach (ICD-10-PCS; principal; 2018-10-07)
DX: E87.1 Hypo-osmolality and hyponatremia (principal); T50.2X5A Adverse effect of carbonic-anhydrase inhibitors, benzothiadiazides and other diuretics, initial encounter; S01.01XA Laceration without foreign body of scalp, initial encounter; W19.XXXA Unspecified fall, initial encounter; R56.9 Unspecified convulsions; E87.2 Acidosis; I10 Essential (primary) hypertension; F10.10 Alcohol abuse, uncomplicated; F14.90 Cocaine use, unspecified, uncomplicated; H33.20 Serous retinal detachment, unspecified eye; J45.20 Mild intermittent asthma, uncomplicated; Z23 Encounter for immunization
CPT/HCPCS: 82435-PO; 82565-PO; 82947-PO; 84132-PO; 84295-PO; 84484-ER; 84520-PO; 85014-ER; 92523-GN; 96374; G0009; G0480; J1650; J1815; J1953